=== PATIENT | male | born 1970 | race Caucasian/White ===

== ENCOUNTER 2018-10-15 11:16 | Outpatient (CLI) | payer OTHER ==
[2018-10-02 13:09] VITALS: BP 114/74
[~2018-10-15 11:16] MED LIST: BUPIVACAINE HCL 0.25% (2.5MG/ML) PF 10ML VIAL IV ONE; Lidocaine 1% 5ml 10 MG/ML VIAL ONE; methylPREDNISolone ACETATE 40 MG/ML VIAL IM ONE
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
== END 2018-10-15 11:45 ==
LOC: ORHTO 11:16
PROVIDERS: ATTEND Orthopaedic Surgery
DX: M25.512 Pain in left shoulder (principal); F17.210 Nicotine dependence, cigarettes, uncomplicated
CPT/HCPCS: 20610; 99202; J1030; J3490